=== PATIENT | male | born 1985 | race Hispanic/Latino ===

== ENCOUNTER 2018-10-05 21:02 | Inpatient (IN) | payer SELFPAY ==
[~2018-10-05] VITALS: Ht 167.6 cm; Wt 81.4 kg
[2018-10-05] MEDS ORDERED: ASPIRIN 325 MG TABLET ONE (21:09)
[2018-10-05] MEDS ORDERED: NITROGLYCERIN 0.4 MG SL TAB SL ONE (21:16)
[2018-10-05 21:21] LABS: BASOPHILS % (AUTO) 0.9 % (0.0-5.0); EOSINOPHILS % (AUTO) 0.5 % (0.0-8.0); LYMPHOCYTES % (AUTO) 25.7 % (21.0-51.0); MEAN CORPUSCULAR HEMOGLOBIN 31.7 pg (27.0-33.0); MEAN CORPUSCULAR HGB CONC 34.3 g/dL (32.0-36.0); MEAN CORPUSCULAR VOLUME 92.3 fL (79-99); MONOCYTES % (AUTO) 5.9 % (3.0-13.0); NUCLEATED RED BLOOD CELLS 0.1 % (0.0-0.19); PLATELET COUNT (AUTO) 214 K/uL (130-400); RED BLOOD CELL COUNT(AUTO) 4.77 MIL/uL (4.50-6.20); RED CELL DISTRIBUTION WIDTH 13.5 % (11.0-15.5); WHITE BLOOD COUNT (AUTO) 11.5 K/uL (4.8-10.8)
[2018-10-05 21:45] LABS: CREATININE 1.1 mg/dL (0.5-1.5); POTASSIUM 3.4 mmol/L (3.5-5.1)
[2018-10-05 21:50] LABS: ALBUMIN 4.4 g/dL (3.5-5.0); BILIRUBIN,TOTAL 0.3 mg/dL (0.2-1.0); TOTAL PROTEIN, SERUM 7.8 g/dL (6.0-8.3)
[2018-10-06] MEDS ORDERED: NITROGLYCERIN 1GM/1 INCH PACKET TD SCH (01:15)
[2018-10-06] MEDS ORDERED: POTASSIUM CHLORIDE 20MEQ/100ML 100 ML IV PRN (01:15)
[2018-10-06] MEDS ORDERED: POTASSIUM CHLORIDE 20 MEQ ERTAB PO PRN (01:15)
[2018-10-06] MEDS ORDERED: POTASSIUM CHLORIDE 10% ELIXIR 20 MEQ/15 ML UDCUP PO PRN (01:15)
[2018-10-06] MEDS ORDERED: LIDOCAINE HCL-MPF 1% 2ML VIAL IV PRN (01:15)
[2018-10-06 01:38] LABS: CREATINE KINASE, TOTAL 154 U/L (21-232); MYOGLOBIN 36 ng/mL (10-92)
[2018-10-06] MEDS ORDERED: HYDRALAZINE HCL 20 MG/ML VIAL IV PRN (02:15)
[2018-10-06 03:30] VITALS: BP 145/92
--- NOTE | 2018-10-06 03:30 | NUR ---
ADMISSION NOTE: Admitted to floor per W/C from ER. Fully awake , AOx4 and very responsive. Amb indep. Advised to be on bedrest with BRP at this time. Positioned comfortably in bed. VS checked and recorded. Assessment done. ( see CPOE flow chart for full assessment) Attached to TELEMONITOR with SR 82 result as reported by telemetry nurse. Oriented to room and use of call light. Policies and procedures explained. Verbalized understanding. Monitored and observed for any unusual changes in condition. Instructed to call the policy writer sales or [employer] staff once urinated for urine sample. Denies feeling of pain at this time. Plan of care initiated. Needs attended and cared for. No apparent distress / discomfort not noted.
[2018-10-06] MEDS ORDERED: POTASSIUM CHLORIDE 20 MEQ ERTAB PO ONE (03:32)
[2018-10-06 05:55] LABS: BASOPHILS % (AUTO) 1.3 % (0.0-5.0); EOSINOPHILS % (AUTO) 1.7 % (0.0-8.0); HEMATOCRIT 43.1 % (42-54); MEAN CORPUSCULAR HEMOGLOBIN 31.3 pg (27.0-33.0); MEAN CORPUSCULAR HGB CONC 34.3 g/dL (32.0-36.0); MEAN CORPUSCULAR VOLUME 91.4 fL (79-99); MONOCYTES % (AUTO) 9.2 % (3.0-13.0); NEUTROPHILS % (AUTO) 58.8 % (40.0-77.0); PLATELET COUNT (AUTO) 228 K/uL (130-400); RED BLOOD CELL COUNT(AUTO) 4.72 MIL/uL (4.50-6.20); RED CELL DISTRIBUTION WIDTH 13.2 % (11.0-15.5); WHITE BLOOD COUNT (AUTO) 7.3 K/uL (4.8-10.8)
[2018-10-06 06:09] LABS: CREATININE 0.9 mg/dL (0.5-1.5); MAGNESIUM 2.2 mg/dL (1.80-2.40); POTASSIUM 4.3 mmol/L (3.5-5.1)
[2018-10-06 06:16] LABS: HEMOGLOBIN A1C 5.5 % (4.0-6.0)
[2018-10-06 07:05] LABS: APPEARANCE,URINE Clear (CLEAR); BILIRUBIN,URINE Negative (NEGATIVE); COLOR,URINE Yellow (YELLOW); GLUCOSE, URINE (UA) Negative (NEGATIVE); KETONES,URINE Negative (NEGATIVE); LEUKOCYTE ESTERASE ,URINE Negative (NEGATIVE); NITRATE,URINE Negative (NEGATIVE); OCCULT BLOOD,URINE Negative (NEGATIVE); PH,URINE 5.5 (5.0-8.0); PROTEIN,URINE Negative (NEGATIVE); UROBILINOGEN,URINE 0.2 mg/dL (0.2-1.0)
[2018-10-06 07:51] VITALS: BP 142/89
[2018-10-06] MEDS ORDERED: METOPROLOL TARTRATE 25 MG TAB PO SCH (09:00)
[2018-10-06] MEDS ORDERED: FAMOTIDINE 20MG TAB 20 MG TAB PO SCH (09:00)
[2018-10-06] MEDS ORDERED: ASPIRIN 81MG TAB.CHEW PO SCH (09:00)
[2018-10-06] MEDS ORDERED: ENOXAPARIN SODIUM 30 MG/0.3 ML SQ SCH (09:00)
[2018-10-06] MEDS ORDERED: METO-391 PO (09:50)
[2018-10-06] MEDS ORDERED: HYDROCODONE/ACETAMINOPHEN 5/325 MG TAB PO PRN (10:00)
[2018-10-06] MEDS ORDERED: HYDROCODONE/ACETAMINOPHEN 5/325 MG TAB PO SCH (10:00)
[2018-10-06 11:33] VITALS: BP 144/79
--- NOTE | 2018-10-06 13:55 | NUR ---
DCP CM met with pt discussed dc plans. Pt is independent prior to admission, lives at home with spouse and children. Denies any equipments/services. Pt feels safe to go ack home, still works and drives. Pt is a self pay, states he goes to Dr Isaak zuniga/Cand[facility], given [facility], [facility] assisting. DC plan to home once stable. CM to cont to follow up. Addendum: 10/06/18 at 1357 by NOE SCHWARZ LVN CM Amended: Links added.
[2018-10-06] MEDS ORDERED: ATORVASTATIN CALCIUM 20 MG TABLET PO SCH (21:00)
== END 2018-10-06 14:23 | disposition home or self-care (01) | DRG 305 ==
LOC: EDH 21:02 → EDHIP 21:03 → OBSVTOIN 21:03 → 3AH 10-06 03:13
PROVIDERS: ADMIT Internal Medicine; ATTEND Internal Medicine
DX: I16.0 Hypertensive urgency (principal); I10 Essential (primary) hypertension; R07.9 Chest pain, unspecified; D72.829 Elevated white blood cell count, unspecified; E87.6 Hypokalemia
CPT/HCPCS: 36415; 71045; 80048; 80053; 80061; 81003; 82550; 83036; 83735; 83874; 84484; 85025; 93005; G0378; J1650